=== PATIENT | male | born 1950 | race Caucasian/White ===

== ENCOUNTER → 2018-12-22 15:01 | Outpatient (CLI) | payer MEDICARE, SELFPAY ==
[2018-12-22 15:47] LABS: International Normalized Ratio 1.1; Prothrombin Time (Protime)PT. 13.7 SECONDS (11.7-14.9)
== END ==
PROVIDERS: Family Provider Family Medicine; PCP Family Medicine; Referring Provider Family Medicine; Visit Provider Family Medicine
DX: I74.9 Embolism and thrombosis of unspecified artery (principal); D75.82 Heparin induced thrombocytopenia (HIT)
CPT/HCPCS: 85610